=== PATIENT | male | born 1930 | race Caucasian/White ===

== ENCOUNTER → 2017-11-06 | Outpatient (CLI) | payer MEDICARE ==
[~2017-11-06] MED LIST: ALLOPURINOL 30300 M1 PO; ELIQUIS5 MG PO; FERGON240 M1 PO; FLOMAX0.4 MG PO; FUROSEMIDE 40 M40 M1 PO; LOPRESSOR100 M1 PO; LOVASTATIN 20 M20 MG PO; POTASSIUM20 PO; PROSCAR 5MG TABL5 M1 PO; PROTONIX40 M1 PO; QUINAPRIL HCL40 MG PO; VITAMINC500 PO; XALATAN2.5 ML OPHTHALMIC
[2017-11-06 11:37] VITALS: BP 110/51; BP 98/45
== END ==
LOC: OPONC 09:13
DX: D50.8 Other iron deficiency anemias (principal)
CPT/HCPCS: 91030